=== PATIENT | male | born 1975 | race Hispanic/Latino ===

== ENCOUNTER 2023-02-21 10:40 | Emergency (ER) | payer OTHER ==
[~2023-02-21] VITALS: Ht 185.4 cm; Wt 147.4 kg
[2023-02-21 10:47] VITALS: BP 167/110; PULSE 78; RESP 16
[2023-02-21] MEDS ORDERED: KETOROLAC 60 MG VIAL (30MG/ML) IM ONE (11:30)
[2023-02-21 11:32] LABS: BASOPHILS # (AUTO) 0.05 K/uL (0.00-0.20); BASOPHILS % (AUTO) 0.3 % (0.0-5.0); EOSINOPHILS # (AUTO) 0.46 K/uL (0.00-0.70); HEMATOCRIT 47.6 % (42-54); IMMATURE GRANULOCYTE ABSOLUTE 0.07 K/uL (0-1); LYMPHOCYTES # (AUTO) 3.1 K/uL (1.0-4.8); LYMPHOCYTES % (AUTO) 20.2 % (21.0-51.0); MEAN CORPUSCULAR HEMOGLOBIN 31.4 pg (27.0-33.0); MEAN CORPUSCULAR HGB CONC 33.4 g/dL (32.0-36.0); MEAN CORPUSCULAR VOLUME 94.1 fL (79-99); MONOCYTES # (AUTO) 1.4 K/uL (0.1-1.0); MONOCYTES % (AUTO) 9.1 % (3.0-13.0); NEUTROPHILS # (AUTO) 10.3 K/uL (1.8-7.7); NEUTROPHILS % (AUTO) 66.9 % (40.0-77.0); PLATELET COUNT (AUTO) 287 K/uL (130-400); RED BLOOD CELL COUNT(AUTO) 5.06 MIL/uL (4.50-6.20); WHITE BLOOD COUNT (AUTO) 15.3 K/uL (4.8-10.8)
[2023-02-21 13:07] LABS: ERYTHROCYTE SEDIMENTATION RATE 7 MM/HR (0-15)
[2023-02-21 13:12] LABS: CREATININE 0.9 mg/dL (0.5-1.5); POTASSIUM 3.9 mmol/L (3.5-5.1)
[2023-02-21 13:16] LABS: ALBUMIN 3.6 g/dL (3.5-5.0); BILIRUBIN,TOTAL 0.3 mg/dL (0.2-1.0); TOTAL PROTEIN, SERUM 7.8 g/dL (6.0-8.3); URIC ACID 7.2 mg/dL (2.6-7.2)
[2023-02-21] MEDS ORDERED: METH4TAB3 PO (14:48)
[2023-02-21] MEDS ORDERED: IBUP-2077 PO (14:48)
[2023-02-21] MEDS ORDERED: CEPH500B PO (14:48)
== END 2023-02-21 14:57 | disposition home or self-care (01) ==
LOC: EDH 10:40
DX: L03.116 Cellulitis of left lower limb (principal); R79.82 Elevated C-reactive protein (CRP)
CPT/HCPCS: 99284; 84550; 80053; 85025; 85651; 83605; 86140; 36415; 73630; 96372; J1885

== ENCOUNTER 2023-03-21 12:35 | Emergency (ER) | payer OTHER ==
[~2023-03-21] VITALS: Ht 182.9 cm; Wt 155.1 kg
[~2023-03-21 12:35] MED LIST: CEPH500B PO; IBUP-2077 PO; METH4TAB3 PO
[2023-03-21 14:07] VITALS: BP 164/98; PULSE 120; RESP 20
[2023-03-21] MEDS ORDERED: KETOROLAC 10 MG TABLET PO SCH (14:30)
[2023-03-21] MEDS ORDERED: METOCLOPRAMIDE 10 MG TABLET PO ONE (14:30)
[2023-03-21] MEDS ORDERED: ACETAMINOPHEN 500 MG TABLET PO ONE (14:30)
[2023-03-21] MEDS ORDERED: FAMOTIDINE 20MG TAB PO ONE (14:30)
[2023-03-21 15:02] LABS: BASOPHILS # (AUTO) 0.04 K/uL (0.00-0.20); BASOPHILS % (AUTO) 0.4 % (0.0-5.0); HEMATOCRIT 46.9 % (42-54); IMMATURE GRANULOCYTE ABSOLUTE 0.07 K/uL (0-1); LYMPHOCYTES # (AUTO) 1.4 K/uL (1.0-4.8); MEAN CORPUSCULAR HEMOGLOBIN 30.6 pg (27.0-33.0); MEAN CORPUSCULAR HGB CONC 34.1 g/dL (32.0-36.0); MEAN CORPUSCULAR VOLUME 89.7 fL (79-99); MONOCYTES # (AUTO) 0.6 K/uL (0.1-1.0); MONOCYTES % (AUTO) 6.1 % (3.0-13.0); NEUTROPHILS # (AUTO) 7.9 K/uL (1.8-7.7); NEUTROPHILS % (AUTO) 78.8 % (40.0-77.0); PLATELET COUNT (AUTO) 170 K/uL (130-400); RED BLOOD CELL COUNT(AUTO) 5.23 MIL/uL (4.50-6.20); RED CELL DISTRIBUTION WIDTH 12.9 % (11.0-15.5)
[2023-03-21 15:24] VITALS: TEMP 102.6
[2023-03-21 15:42] LABS: SARS-CoV-2, RNA, NAAT POSITIVE SARS CoV-2 (NEGATIVE)
[2023-03-21 15:50] LABS: RAPID GROUP A STREP positive (NEGATIVE)
[2023-03-21 15:54] LABS: INFLUENZA TYPE A Negative For Type A (NEGATIVE); INFLUENZA TYPE B Negative For Type B (NEGATIVE)
[2023-03-21] MEDS ORDERED: PENICILLIN V POTASSIUM 500 MG TABLET PO ONE (16:00)
[2023-03-21 16:21] LABS: THYROID STIMULATING HORMONE 1.42 uIU/mL (0.36-3.74)
[2023-03-21] MEDS ORDERED: CALCIUM CARB 500MG CHEW TAB PO SCH (16:30)
[2023-03-21] MEDS ORDERED: PENI500T2 PO (16:30)
[2023-03-21] MEDS ORDERED: METO-296 PO (16:30)
== END 2023-03-21 17:03 | disposition home or self-care (01) ==
LOC: EDH 12:35
DX: U07.1 COVID-19 (principal); G44.209 Tension-type headache, unspecified, not intractable; J02.0 Streptococcal pharyngitis; Z79.899 Other long term (current) drug therapy; Z98.890 Other specified postprocedural states
CPT/HCPCS: 36415; 70450; 80048; 83735; 84443; 85025; 87635; 87804; 87880; 93005

== ENCOUNTER 2023-03-23 19:27 | Emergency (ER) | payer OTHER ==
[~2023-03-23 19:27] MED LIST changes: +METO-296 PO; +PENI500T2 PO
== END 2023-03-23 20:05 | disposition left against medical advice (07) ==
LOC: EDH 19:27
DX: R51.9 Headache, unspecified (principal); Z53.21 Procedure and treatment not carried out due to patient leaving prior to being seen by health care provider

== ENCOUNTER 2023-07-23 19:32 | Emergency (ER) | payer OTHER ==
[~2023-07-23] VITALS: Ht 185.4 cm; Wt 98.4 kg
[2023-07-23] MEDS ORDERED: METH4TAB3 PO (19:53)
[2023-07-23] MEDS ORDERED: AMOX1TAB16 PO (19:53)
[2023-07-23] MEDS ORDERED: IBUP-2077 PO (19:53)
[2023-07-23 20:40] VITALS: BP 140/89; PULSE 97; RESP 20; O2SAT 99
[2023-07-23] MEDS: CEFTRIAXONE 1G VIAL IM ONE (20:42)
[2023-07-23] MEDS: IBUPROFEN 800 MG TAB PO ONE (20:43)
== END 2023-07-23 20:41 | disposition home or self-care (01) ==
LOC: EDH 19:32
DX: J03.90 Acute tonsillitis, unspecified (principal); R50.9 Fever, unspecified; E66.9 Obesity, unspecified; Z79.899 Other long term (current) drug therapy; Z98.890 Other specified postprocedural states
CPT/HCPCS: 99283; 96372; J0696